=== PATIENT | male | born 1940 | race Caucasian/White ===

== ENCOUNTER 2016-09-26 10:15 | Inpatient (IN) | payer OTHER ==
[~2016-09-26] VITALS: Ht 188 cm; Wt 97.4 kg
[2016-09-26 11:11] LABS: EOSINOPHIL (%) 0.1 % (0-5); HEMATOCRIT 40.7 % (38.0-50.0); IMMATURE GRANULOCYTE (%) 0.3 % (0.0-0.7); INSTRUMENT ABS NEUTROPHIL CT 7.1 K/uL; LYMPHOCYTE COUNT 0.9 K/uL (1.0-2.8); MCH 28.4 PG (29.0-34.0); MCHC 33.7 G/DL (30.0-36.0); MCV 84.4 FL (86-99); MEAN PLAT.VOLUME 10.6 uM^3 (9.0-12.4); MONOCYTE (%) 13.3 % (3-12); MONOCYTE COUNT 1.2 K/uL (0-0.8); NEUTROPHIL (%) 76.8 % (45-76); NEUTROPHIL COUNT 7.1 K/uL (1.8-6.4); PLATELET COUNT 196 K/uL (156-360); RBC DIS.WIDTH-CV 13.1 % (11.8-14.6); RBC DIS.WIDTH-SD 40.4 % (39-53); RED BLOOD COUNT 4.82 M/uL (4.00-5.50); WHITE BLOOD COUNT 9.3 K/uL (4.1-10.2)
[2016-09-26 11:22] LABS: INTER. NORMALIZED RATIO 1.2; PROTHROMBIN TIME 12.2 (9.2-11.2)
[2016-09-26 11:26] LABS: CHLORIDE 107 mEq/L (99-109); POTASSIUM 3.9 mEq/L (3.7-5.4); SODIUM 139 mEq/L (136-147)
[2016-09-26 11:27] LABS: MAGNESIUM 1.9 mg/dL (1.3-2.7)
[2016-09-26 11:28] LABS: GLUCOSE 182 mg/dL (70-99)
[2016-09-26 11:29] LABS: ANION GAP 11 MEQ/L (2-14)
[2016-09-26 11:32] LABS: GFR ESTIMATE (CALCULATED) > 59 mL/min/
[2016-09-26 11:33] LABS: UREA NITROGEN (BUN) 13 mg/dL (9-23)
[2016-09-26 11:37] LABS: TROP-I INTERPRETATION NEGATIVE; TROPONIN-I 0.01 ng/mL (0.0-0.30)
[2016-09-26] MEDS ORDERED: AMLODIPINE BESY10 MG PO (14:18)
[2016-09-26] MEDS ORDERED: GLUCOPHAGE500 MG PO (14:18)
[2016-09-26] MEDS ORDERED: SIMVASTATIN20 MG PO (14:19)
[2016-09-26] MEDS ORDERED: ASCORBIC ACID500 M1 PO (14:20)
[2016-09-26] MEDS ORDERED: CYANOCOBALAM1000 MCG PO (14:20)
[2016-09-26] MEDS ORDERED: SYMBICORT60 INHALAT IH (14:21)
[2016-09-26] MEDS ORDERED: PROAIR HFA8.5 GM IH (14:21)
[2016-09-26] MEDS ORDERED: TERAZOSIN HCL10 MG PO ×2 (14:28→14:29)
[2016-09-26] MEDS ORDERED: SIMVASTATIN10 MG PO (14:29)
[2016-09-26 15:48] LABS: D-DIMER ELISA 0.74 mg/L FEU (< 0.57)
[2016-09-26 17:49] LABS: Estimated Average Glucose 171 mg/dL (70-123); HEMOGLOBIN A1c (GLYCOHEMOGLOB) 7.6 % HGB (Below 5.7)
[2016-09-26 18:56] LABS: TROP-I INTERPRETATION NEGATIVE; TROPONIN-I 0.02 ng/mL (0.0-0.30)
[2016-09-26 19:47] VITALS: BP 196/93
[2016-09-26 21:45] LABS: POINT-OF-CARE METER ID UU13113700
[2016-09-26 23:58] VITALS: BP 196/87
[2016-09-27] VITALS (7 sets, daily range): BP systolic 146–180; BP diastolic 73–88
[2016-09-27 01:01] LABS: TROP-I INTERPRETATION NEGATIVE; TROPONIN-I 0.02 ng/mL (0.0-0.30)
[2016-09-27 07:10] LABS: HEMATOCRIT 37.4 % (38.0-50.0); MCH 28.4 PG (29.0-34.0); MCV 83.7 FL (86-99); MEAN PLAT.VOLUME 10.8 uM^3 (9.0-12.4); PLATELET COUNT 185 K/uL (156-360); RBC DIS.WIDTH-SD 39.9 % (39-53); RED BLOOD COUNT 4.47 M/uL (4.00-5.50); WHITE BLOOD COUNT 7.7 K/uL (4.1-10.2)
[2016-09-27 08:21] LABS: POINT-OF-CARE METER ID UU13113700
[2016-09-27 08:44] LABS: CHLORIDE 105 mEq/L (99-109)
[2016-09-27 08:45] LABS: SODIUM 139 mEq/L (136-147)
[2016-09-27 08:46] LABS: GLUCOSE 180 mg/dL (70-99)
[2016-09-27 08:48] LABS: ANION GAP 13 MEQ/L (2-14)
[2016-09-27 08:50] LABS: GFR ESTIMATE (CALCULATED) > 59 mL/min/
[2016-09-27 08:51] LABS: POTASSIUM 3.1 mEq/L (3.7-5.4); UREA NITROGEN (BUN) 15 mg/dL (9-23)
[2016-09-27 09:16] LABS: HDL CHOLESTEROL 32 MG/DL (Desirable>=40); LDL CHOLESTEROL 34 mg/dL (Desirable<100); NON-HDL CHOLESTEROL 45 mg/dL (Desirable<160); SAMPLE HEMOLYSIS CHECK 0; SAMPLE ICTERIC CHECK 0; SAMPLE LIPEMIA CHECK 0; TOTAL CHOLESTEROL 77 mg/dL (Desirable<200); TRIGLYCERIDES 53 MG/DL (Normal: <150)
[2016-09-27 11:03] LABS: ADD MIUA? YES; BILIRUBIN NEGATIVE; BLOOD NEGATIVE; COLOR YELLOW ((YELLOW)); GLUCOSE (STRIP) >=500; KETONES 20; LEUKOCYTES NEGATIVE; NITRITE NEGATIVE; PROTEIN (STRIP) 100; SPECIFIC GRAVITY 1.026 (1.000-1.030); UROBILINOGEN 0.2 MG/DL (0.2-1.0)
[2016-09-27 11:08] LABS: BACTERIA NONE SEEN /HPF; EPITHELIAL CELLS RARE /HPF; MUCUS 4+ /LPF; UCUL ADDED? NO; WHITE BLOOD CELLS 0-5 /HPF (0-5)
[2016-09-27 12:35] LABS: POINT-OF-CARE METER ID UU13113700
[2016-09-27] MEDS ORDERED: ASPIR-LOW81 MG PO (14:35)
[2016-09-27 18:03] LABS: POINT-OF-CARE METER ID UU13113831
[2016-09-27 21:54] LABS: POINT-OF-CARE METER ID UU13113831
[2016-09-28 04:00] VITALS: BP 164/79
[2016-09-28 04:56] LABS: CHLORIDE 110 mEq/L (99-109); POTASSIUM 3.4 mEq/L (3.7-5.4); SODIUM 141 mEq/L (136-147)
[2016-09-28 04:57] LABS: GLUCOSE 156 mg/dL (70-99)
[2016-09-28 04:59] LABS: ANION GAP 10 MEQ/L (2-14)
[2016-09-28 05:01] LABS: GFR ESTIMATE (CALCULATED) > 59 mL/min/
[2016-09-28 05:02] LABS: UREA NITROGEN (BUN) 16 mg/dL (9-23)
[2016-09-28 07:08] VITALS: BP 170/81
[2016-09-28 08:16] LABS: POINT-OF-CARE METER ID UU13113700
[2016-09-28 12:00] VITALS: BP 169/82
[2016-09-28 12:24] LABS: POINT-OF-CARE METER ID UU13113700
[2016-09-28 17:17] LABS: POINT-OF-CARE METER ID UU13113700
[2016-09-28 17:26] VITALS: BP 168/88
[2016-09-28 19:15] VITALS: BP 163/81
[2016-09-28 21:05] LABS: POINT-OF-CARE METER ID UU14162513
[2016-09-28 23:51] VITALS: BP 170/88
[2016-09-29 00:40] VITALS: BP 159/83
[2016-09-29 04:15] VITALS: BP 160/79
[2016-09-29 06:17] LABS: HEMATOCRIT 36.8 % (38.0-50.0); MCHC 33.2 G/DL (30.0-36.0); MCV 84.4 FL (86-99); MEAN PLAT.VOLUME 10.9 uM^3 (9.0-12.4); PLATELET COUNT 200 K/uL (156-360); RBC DIS.WIDTH-CV 13.2 % (11.8-14.6); RBC DIS.WIDTH-SD 40.7 % (39-53); RED BLOOD COUNT 4.36 M/uL (4.00-5.50); WHITE BLOOD COUNT 5.9 K/uL (4.1-10.2)
[2016-09-29 06:25] LABS: ANION GAP 9 MEQ/L (2-14); CHLORIDE 108 MEQ/L (99-109); GFR ESTIMATE (CALCULATED) > 59 mL/min/; GLUCOSE 185 mg/dL (70-99); POTASSIUM 3.8 MEQ/L (3.7-5.4); SAMPLE HEMOLYSIS CHECK 0; SAMPLE ICTERIC CHECK 0; SAMPLE LIPEMIA CHECK 0; SODIUM 141 MEQ/L (136-147); UREA NITROGEN (BUN) 17 mg/dL (9-23)
[2016-09-29 07:56] VITALS: BP 182/81
[2016-09-29 11:37] VITALS: BP 144/83
[2016-09-29 12:28] LABS: POINT-OF-CARE METER ID UU14162513
[2016-09-29 17:06] VITALS: BP 170/82
[2016-09-29 17:17] LABS: POINT-OF-CARE METER ID UU13113700
[2016-09-29 20:57] LABS: POINT-OF-CARE METER ID UU13113700
[2016-09-29 21:04] VITALS: BP 165/70
[2016-09-30 00:49] VITALS: BP 155/70
[2016-09-30 04:44] VITALS: BP 168/88
[2016-09-30 08:06] LABS: POINT-OF-CARE METER ID UU13113700
[2016-09-30 08:30] VITALS: BP 166/81
[2016-09-30 11:53] VITALS: BP 138/71
[2016-09-30 12:11] LABS: POINT-OF-CARE METER ID UU13113700
== END 2016-09-30 18:39 | DRG 313 ==
LOC: EME 10:15 → 5WEST 14:48 → EDOF 14:48 → 5WEST 19:15
PROVIDERS: Emergency Medicine; Hospitalist; Internal Medicine; Nurse Practitioner Family; Physician Assistant Medical
DX: R07.9 Chest pain, unspecified (principal); R60.0 Localized edema; E11.9 Type 2 diabetes mellitus without complications; I10 Essential (primary) hypertension; E78.5 Hyperlipidemia, unspecified; F01.50 Vascular dementia, unspecified severity, without behavioral disturbance, psychotic disturbance, mood disturbance, and anxiety; Z87.891 Personal history of nicotine dependence; Z79.82 Long term (current) use of aspirin; Z79.4 Long term (current) use of insulin; I25.10 Atherosclerotic heart disease of native coronary artery without angina pectoris
CPT/HCPCS: 70450; 71010; 71275; 80048; 80061; 81003; 82948; 83036; 83735; 83880; 84484; 85025; 85027; 85379; 85610; 85730; 93005; 93306; 93970; 94640; 94640 76; 94799; 99202; 99281; 99285; G0378; J0360; J1644; J1815; J1940

== ENCOUNTER 2016-11-01 18:40 | Emergency (ER) | payer OTHER ==
[~2016-11-01] VITALS: Ht 188 cm; Wt 87.3 kg
[~2016-11-01 18:40] MED LIST: AMLODIPINE BESY10 MG PO; ASCORBIC ACID500 M1 PO; ASPIR-LOW81 MG PO; CYANOCOBALAM1000 MCG PO; GLUCOPHAGE500 MG PO; PROAIR HFA8.5 GM IH; SIMVASTATIN10 MG PO; SIMVASTATIN20 MG PO; SYMBICORT60 INHALAT IH; TERAZOSIN HCL10 MG PO
[2016-11-01 19:18] LABS: HEMATOCRIT 42.6 % (38.0-50.0); MCV 82.4 FL (86-99); PLATELET COUNT 180 K/uL (156-360); RBC DIS.WIDTH-CV 13.3 % (11.8-14.6); RBC DIS.WIDTH-SD 39.7 % (39-53); RED BLOOD COUNT 5.17 M/uL (4.00-5.50); WHITE BLOOD COUNT 10.5 K/uL (4.1-10.2)
[2016-11-01 19:26] LABS: CHLORIDE 106 mEq/L (99-109); POTASSIUM 3.6 mEq/L (3.7-5.4); SODIUM 141 mEq/L (136-147)
[2016-11-01 19:28] LABS: GLUCOSE 202 mg/dL (70-99)
[2016-11-01 19:29] LABS: ANION GAP 10 MEQ/L (2-14)
[2016-11-01 19:32] LABS: GFR ESTIMATE (CALCULATED) > 59 mL/min/
[2016-11-01 19:33] LABS: UREA NITROGEN (BUN) 14 mg/dL (9-23)
[2016-11-01 19:39] LABS: TROP-I INTERPRETATION NEGATIVE; TROPONIN-I 0.03 ng/mL (0.0-0.30)
[2016-11-01] MEDS ORDERED: PROVENTIL HFA6.7 GM IH (20:03)
[2016-11-01 21:02] VITALS: BP 184/87
== END 2016-11-01 21:03 | disposition home or self-care (01) ==
LOC: EME 18:40
PROVIDERS: Emergency Medicine
DX: S22.42XA Multiple fractures of ribs, left side, initial encounter for closed fracture (principal); S00.81XA Abrasion of other part of head, initial encounter; W10.9XXA Fall (on) (from) unspecified stairs and steps, initial encounter; F03.90 Unspecified dementia, unspecified severity, without behavioral disturbance, psychotic disturbance, mood disturbance, and anxiety; I10 Essential (primary) hypertension; E11.9 Type 2 diabetes mellitus without complications; Z79.84 Long term (current) use of oral hypoglycemic drugs; Z87.891 Personal history of nicotine dependence
CPT/HCPCS: 70450; 71250; 72125; 80048; 84484; 85027; 93005; 94640; 99281; 99284

== ENCOUNTER 2016-11-01 21:19 | Emergency (ER) | payer OTHER ==
[~2016-11-01] VITALS: Ht 188 cm; Wt 87.3 kg
[~2016-11-01 21:19] MED LIST changes: +PROVENTIL HFA6.7 GM IH
[2016-11-01 22:28] LABS: POINT-OF-CARE METER ID UU13113702
[2016-11-01 22:50] LABS: EOSINOPHIL (%) 0.4 % (0-5); HEMATOCRIT 42.6 % (38.0-50.0); IMMATURE GRANULOCYTE (%) 0.4 % (0.0-0.7); INSTRUMENT ABS NEUTROPHIL CT 7.8 K/uL; MCV 82.2 FL (86-99); MEAN PLAT.VOLUME 10.1 uM^3 (9.0-12.4); MONOCYTE COUNT 1.2 K/uL (0-0.8); NEUTROPHIL (%) 77.3 % (45-76); NEUTROPHIL COUNT 7.8 K/uL (1.8-6.4); PLATELET COUNT 177 K/uL (156-360); RBC DIS.WIDTH-CV 13.4 % (11.8-14.6); RED BLOOD COUNT 5.18 M/uL (4.00-5.50); WHITE BLOOD COUNT 10.1 K/uL (4.1-10.2)
[2016-11-01 23:05] LABS: CHLORIDE 106 mEq/L (99-109); POTASSIUM 3.4 mEq/L (3.7-5.4); SODIUM 141 mEq/L (136-147)
[2016-11-01 23:07] LABS: GLUCOSE 226 mg/dL (70-99)
[2016-11-01 23:08] LABS: ANION GAP 12 MEQ/L (2-14)
[2016-11-01 23:09] LABS: TOTAL BILIRUBIN 1.4 mg/dL (0.0-1.0)
[2016-11-01 23:10] LABS: ALKALINE PHOSPHATASE 82 IU/L (3-129)
[2016-11-01 23:11] LABS: GFR ESTIMATE (CALCULATED) > 59 mL/min/; TROP-I INTERPRETATION NEGATIVE; TROPONIN-I < 0.01 ng/mL (0.0-0.30)
[2016-11-01 23:12] LABS: UREA NITROGEN (BUN) 15 mg/dL (9-23)
[2016-11-02 07:31] VITALS: BP 180/87
== END 2016-11-02 07:33 | disposition short-term general hospital (02) ==
LOC: EME 21:19
PROVIDERS: Emergency Medicine
DX: R55 Syncope and collapse (principal); S00.03XA Contusion of scalp, initial encounter; X58.XXXA Exposure to other specified factors, initial encounter; I48.91 Unspecified atrial fibrillation; I45.10 Unspecified right bundle-branch block; R41.82 Altered mental status, unspecified; S22.49XD Multiple fractures of ribs, unspecified side, subsequent encounter for fracture with routine healing; Y09 Assault by unspecified means; Y07.410 Brother, perpetrator of maltreatment and neglect; I10 Essential (primary) hypertension; E11.9 Type 2 diabetes mellitus without complications; Z87.891 Personal history of nicotine dependence
CPT/HCPCS: 70450; 71010; 72125; 80053; 82948; 84484; 85025; 93005; 99281; 99285